=== PATIENT | male | born 1970 | race Caucasian/White ===

== ENCOUNTER → 2021-03-29 00:54 | Outpatient (CLI) | payer OTHER, SELFPAY ==
[2021-03-29 16:46] LABS: SARS-CoV-2 RNA PCR Negative
== END ==
PROVIDERS: PCP Family Medicine; Visit Provider Internal Medicine Gastroenterology
DX: Z01.812 Encounter for preprocedural laboratory examination (principal); Z20.822 Contact with and (suspected) exposure to COVID-19
CPT/HCPCS: C9803; U0003; U0005

== ENCOUNTER 2021-04-02 00:55 | Day surgery (SDC) | payer OTHER, SELFPAY ==
[2021-03-25 15:01] VITALS: BMI 30.8
--- NOTE | 2021-04-01 10:03 | WPDANESEPPF ---
Anes - Initial Pre Proc Eval Procedure: Operation Date: 04/02/21 08:30 Proposed Procedures p Screening Colonoscopy - Bi Youssef MD Date/Time: 04/01/21 10:03 Surgeon: Bi Youssef MD Pre Op Diagnosis: neoplasm screening Patient Data Age: 50 Gender: M Height: 1.65 m Weight: 84 kg Allergies Allergy/AdvReac Type Severity Reaction Status Date / Time grass pollen Allergy Mild unknown Verified 04/02/21 07:17 Home Medications Medication Instructions Recorded Confirmed Type syringe with needle 3 mL 21 gauge #100 ea 09/26/20 Rx x 1 09/14 testosterone cypionate 200 mg/mL 200 mg IM .every 2 weeks #1 vial 02/25/21 03/25/21 Rx intramuscular oil levothyroxine 150 mcg tablet 150 mcg PO DAILY #30 tablet 03/26/21 04/02/21 Rx lisinopril 20 1 tablet PO DAILY #30 tablet 03/26/21 04/02/21 Rx mg-hydrochlorothiazide 12.5 mg tablet Patient hx anesthesia problems: none Family hx anesthesia problems: none PMFSH Past Medical History Medical History (Updated 08/27/20 @ 17:08 by Lolita Cheek NP) Hyperlipidemia (~2017) Hypertension (~2014) Hypogonadism in male (~2016) 300# Hypothyroidism, unspecified (~1999) h/o Grave's disease w/ RT Sleep apnea (~1999) highest weight 337# 03/13/2018: keto w/ low GI fruits; Surgical History Surgical History (Updated 08/27/20 @ 17:09 by Lolita Cheek NP) H/O hernia repair (~02/2019) Family History Family History Father Hypertension HLD (hyperlipidemia) Colon polyp Sibling Diabetes mellitus Other Diabetes mellitus Grandparent Hypothyroidism (acquired) Grandparent Carcinoma of colon Grandparent Alcohol use disorder Social History Social History Smoking status: Never smoker Alcohol intake: current Alcohol use details: 1 PER MONTH Substance use: never Substance use type: does not use Living arrangements: with family Additional living arrangements comments: 17 y/o & 12 y/o 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 Gender identity (if verbalized by the patient): Male Spiritual care concerns: No Agree to blood products: Yes Anes - Eval Final PreProcedure Day of Procedure 04/01/21 10:03 Patient weight: obese Heart: regular rate and rhythm Lungs: clear to auscultation and normal air movement Airway: Mallampati scale class II Neurological: alert and oriented Last oral intake: >/= 8 hours ASA classification: III Emergent: no Anesthetic plan: proceed Anesthesia type and monitoring: general GIVS and standard monitoring Informed Consent: The patient's anesthetic plan and its attendant risks and benefits were discussed with the patient/family/POA. Questions were solicited and answers provided to the satisfaction of the patient/family/POA.
[2021-04-02 07:19] VITALS: BP 132/82; PULSE 64; RESP 16; TEMP 36.1; O2SAT 100; BMI 35.6
[2021-04-02] MEDS: LACTATED RINGERS 1,000 ML 150 ML IV CONT (07:23)
--- NOTE | 2021-04-02 08:22 | PM.HPGS ---
History of Present Illness History of Present Illness Consent: Risks, benefits, and alternatives have been discussed and questions answered. Patient agrees to proceed with procedure. Chief complaint: neoplasm screening Narrative: Robert Arceo is a 50 year old male here for first screening colonoscopy Review of Systems Constitutional: Constitutional: Denies headache(s) and Denies weakness Eyes: Eyes: Denies blurry vision ENT: Reports Normal hearing present, Denies headache(s) and Denies neck pain Cardiovascular: Cardiovascular: Denies chest pain and Denies dyspnea Respiratory: Respiratory: Denies dyspnea Gastrointestinal: Gastrointestinal: Reports no additional gastrointestinal complaints Genitourinary: Genitourinary: Denies dysuria Musculoskeletal: Musculoskeletal: Denies neck pain Integumentary/Breasts: Skin/Breast: Denies dry skin Neurologic: Reports Normal hearing present, Denies headache(s) and Denies weakness Psychiatric: Psychiatric: Denies anxiety Endocrine: Endocrine: Denies change in body appearance Hematologic/Lymphatic: Hematologic/Lymphatic: Denies easy bleeding Allergic/Immunologic: Allergic/Immunologic: Denies urticaria PMFSH Past Medical History Medical History (Updated 08/27/20 @ 17:08 by Lolita Cheek NP) Hyperlipidemia (~2017) Hypertension (~2014) Hypogonadism in male (~2017) 300# Hypothyroidism, unspecified (~1999) h/o Grave's disease w/ RT Sleep apnea (~1999) highest weight 337# 03/13/2018: keto w/ low GI fruits; Surgical History Surgical History (Updated 08/27/20 @ 17:09 by Lolita Cheek NP) H/O hernia repair (~02/2019) Family History Family History Father Hypertension HLD (hyperlipidemia) Colon polyp Sibling Diabetes mellitus Other Diabetes mellitus Grandparent Hypothyroidism (acquired) Grandparent Carcinoma of colon Grandparent Alcohol use disorder Social History Social History Smoking status: Never smoker Alcohol intake: current Alcohol use details: 1 PER MONTH Substance use: never Substance use type: does not use Living arrangements: with family Additional living arrangements comments: 17 y/o & 12 y/o 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 Gender identity (if verbalized by the patient): Male Spiritual care concerns: No Agree to blood products: Yes Meds Home Medications and Allergies Home Medications Medication Instructions Recorded Confirmed Type syringe with needle 3 mL 21 gauge #100 ea 09/26/20 Rx x 1 / testosterone cypionate 200 mg/mL 200 mg IM .every 2 weeks #1 vial 02/25/21 03/25/21 Rx intramuscular oil levothyroxine 150 mcg tablet 150 mcg PO DAILY #30 tablet 03/26/21 04/02/21 Rx lisinopril 20 1 tablet PO DAILY #30 tablet 03/26/21 04/02/21 Rx mg-hydrochlorothiazide 12.5 mg tablet Allergies Allergy/AdvReac Type Severity Reaction Status Date / Time grass pollen Allergy Mild unknown Verified 04/02/21 07:17 Vital Signs Vital Signs - 24 hr 04/02/21 07:19 Temperature 97 F L Pulse Rate 64 Respiratory Rate 16 Blood Pressure 132/82 Pulse Oximetry 100 Exam Const: General: comfortable and no acute distress HENMT: General nose exam: Normal nares present Eyes: General: appearance normal, both eyes and all related structures Neck: Neck: no JVD Resp: Auscultation: clear to auscultation bilaterally Cardio: Rate: regular rate Rhythm: regular rhythm GI: Inspection: non-distended GI Palp: Yes Soft to palpation Skin: General skin exam: normal color Neuro: General: gait normal Speech: normal speech Extrem: General: normal to inspection Psych: Mental Status: mental status grossly normal Assessment and Plan Assessment and plan (1) Encounter for screening for malignant neoplasm of colon: Code(s): Z
[2021-04-02 08:49] VITALS: BP 105/68; PULSE 62; RESP 18; O2SAT 99
[2021-04-02 08:59] VITALS: BP 116/81; PULSE 62; RESP 18; O2SAT 96
[2021-04-02 09:09] VITALS: BP 122/86; PULSE 64; RESP 20; O2SAT 99
== END 2021-04-02 09:15 | disposition home or self-care (01) ==
PROVIDERS: PCP Family Medicine; Visit Provider Internal Medicine Gastroenterology
PROC: 0DJD8ZZ Inspection of Lower Intestinal Tract, Via Natural or Artificial Opening Endoscopic (ICD-10-PCS; CPT 45378; principal; 2021-04-02 08:30)
DX: Z12.11 Encounter for screening for malignant neoplasm of colon (principal); K57.30 Diverticulosis of large intestine without perforation or abscess without bleeding; K64.8 Other hemorrhoids; I10 Essential (primary) hypertension; E78.5 Hyperlipidemia, unspecified; G47.30 Sleep apnea, unspecified; E66.9 Obesity, unspecified; Z68.35 Body mass index [BMI] 35.0-35.9, adult
CPT/HCPCS: 45378; C9803; J2704; J7120; U0003; U0005